=== PATIENT | male | born 1995 | race Two or more races ===

== ENCOUNTER 2020-06-14 15:48 | Emergency (ER) | payer OTHER ==
[2020-06-14 16:34] VITALS: BP 132/87; PULSE 114; TEMP 98.1; BMI 28.2
[2020-06-14] MEDS ORDERED: IBUPROFEN 600 MG TABLET (FP) PO ONE ×2 (18:36→18:38)
== END 2020-06-14 18:42 | disposition home or self-care (01) ==
LOC: JERFT 15:48
PROC: 0H96XZZ Drainage of Back Skin, External Approach (ICD-10-PCS; principal; 2020-06-14)
DX: L02.212 Cutaneous abscess of back [any part, except buttock and flank] (principal)
CPT/HCPCS: 99283-25

== ENCOUNTER 2020-06-17 15:41 | Emergency (ER) | payer OTHER | END 2020-06-17 17:49 | disposition home or self-care (01) | LOC: JERFT 15:41 | DX: Z48.00 Encounter for change or removal of nonsurgical wound dressing (principal) | CPT/HCPCS: 99281-25 ==